=== PATIENT | male | born 1985 | race Caucasian/White ===

== ENCOUNTER 2022-05-02 00:11 | Emergency (ER) | payer SELFPAY ==
[2022-05-02] MEDS ORDERED: Bacitracin Oint 1 GM U/D Packet TOP ONE (01:49)
[2022-05-02] MEDS ORDERED: Lidocaine 1% 5 ML VIAL INJECT ONE (01:49)
== END 2022-05-02 02:55 | disposition home or self-care (01) ==
LOC: JP.ED 00:11
DX: S61.321A Laceration with foreign body of left index finger with damage to nail, initial encounter (principal); I10 Essential (primary) hypertension; F17.210 Nicotine dependence, cigarettes, uncomplicated; Z79.899 Other long term (current) drug therapy; W23.1XXA Caught, crushed, jammed, or pinched between stationary objects, initial encounter
CPT/HCPCS: 12001; 99282